=== PATIENT | female | born 1985 | race Caucasian/White ===

== ENCOUNTER 2017-08-08 03:17 | Outpatient (CLI) | payer SELFPAY ==
[2017-08-08 03:33] VITALS: BP 114/66
[2017-08-08] MEDS ORDERED: OXYcodone/APAP 5/325MG TABLET PO PRN (04:00)
[2017-08-08] MEDS ORDERED: TERBUTALINE 1 MG/ML, 1ML ONE (04:17)
[2017-08-08] MEDS ORDERED: TERBUTALINE 1 MG/ML, 1ML SQ ONE (04:30)
== END 2017-08-08 05:47 | disposition home or self-care (01) ==
LOC: LDOP 03:17
PROVIDERS: ATTEND Advanced Practice Midwife
DX: O26.893 Other specified pregnancy related conditions, third trimester (principal); O62.9 Abnormality of forces of labor, unspecified; O99.513 Diseases of the respiratory system complicating pregnancy, third trimester; R10.9 Unspecified abdominal pain; J45.909 Unspecified asthma, uncomplicated; Z3A.29 29 weeks gestation of pregnancy
CPT/HCPCS: 36415; 59025; 81001; 82731; 87086; 96372; 99201; J3105; G0463